=== PATIENT | female | born 1975 | race Caucasian/White ===

== ENCOUNTER 2018-02-28 14:47 | Emergency (ER) | payer MEDICAID, SELFPAY ==
[2018-02-28 14:52] VITALS: BP 150/115; PULSE 72; RESP 18; TEMP 37.4; O2SAT 100
--- NOTE | 2018-02-28 15:01 | DI.RAD_ITS ---
SYMPTOMS/DIAGNOSIS: PAIN AT DISTAL RADIUS AND SNUFFBOX (FALL ON OUTSTRETCHED HAND). LEFT WRIST WITH NAVICULAR VIEW: The navicular appears intact. The carpal alignment appears normal. There is a lucency in the distal radius at the articular surface suspicious for a nondisplaced fracture. IMPRESSION: Question of a nondisplaced fracture of the distal radius.
[2018-02-28] MEDS: Acetaminophen 500 MG TAB 1000 MG PO (15:05)
[2018-02-28] MEDS: Ibuprofen 800 MG TAB PO (15:05)
[2018-02-28 15:07] VITALS: BP 140/73
--- NOTE | 2018-02-28 15:07 | ED.GENADUL_ITS ---
Discharge Plan Disposition Patient Disposition: HOME Condition: Good Discharge Details Chief Complaint: Orthopedic Clinical Impression: Distal radius fracture, left Primary Care Provider: Erica Barajas ED Provider: Per Montoya Home Meds and New Rx's Prescriptions: No Action acetaminophen [Mapap Extra Strength] 500 MG tablet 500 mg PO PRN PRNRF: 0 ibuprofen 600 MG tablet 600 mg PO QID PRN (Reason: Pain) Qty: 15 RF: 0 Discharge Instructions Instructions: Wrist Fracture in Adults (ED) Additional Instructions: Please use the splint at all times. Please take Tylenol, and Motrin for control of pain. Please use ice as often as possible. If you notice any worsening of your symptoms, or any new symptoms such as vomiting, diarrhea, fever, chills, shortness of breath, chest pain, numbness, weakness, or fainting , please return immediately to the emergency department for reevaluation. Please follow up with your primary care provider as soon as possible for reassessment and reevaluation. As always, it was a pleasure participating in your medical care today. Referrals: Erica Barajas [Primary Care Provider] - Medical Decision Making This is a 42-year-old female who presents with left wrist pain after a FOOSH. It occurred at 8 AM today. She has taken no Tylenol or Motrin. Notable pain over the anatomical snuffbox,, worsened pain with flexion and extension of the wrist. I am concerned for a scaphoid injury, we will get an x-ray to evaluate for any acute fracture. Patient has seen Dr. Aguilar in the past for surgery on her left carpal tunnel. 3:50 PM X-ray results have returned, and there appears to be evidence of a distal radius fracture per Dr. Hillman and on my inspection of the x-ray. Because of the patient's snuffbox tenderness in spite of no evidence of scaphoid or lunate fracture we will still place the patient in a thumb spica wrist splint. Recommend Tylenol Motrin and ice for home use. We discussed the importance of close follow-up with orthopedics we will set up a referral for. I have extensively reviewed the treatment plan and discharge instructions with the patient. I have addressed all patient concerns at this time. The patient was made aware of what symptoms to monitor for that would warrant a return to the emergency department. Discussed the plan with the patient, they demonstrate verbal understanding and agreement with our assessment and plan at this time. HPI General Date/Time Provider Initiated Documentation: 02/28/18 15:01 . HPI Narrative: This is a 42-year-old female who is ambidextrous but normally vegec-hbre-ctmyangn who presents for left wrist pain. At 8 AM the patient fell on an outstretched hand with the majority of the pressure being caught by her left wrist. She immediately noticed pain over the distal radius, pain is worse with movement, improved by nothing. She has taken no Tylenol or Motrin. No radiation of the pain to the fingers or forearm. Patient denies any associated numbness tingling or weakness. She has no other complaints at this time. No recent surgeries, no pertinent family history, no IV or illicit drug use Related Data Home Medications Medication Instructions Recorded Confirmed acetaminophen [Mapap Extra 500 mg PO PRN PRN 08/31/16 02/28/18 Strength] ibuprofen 600 mg PO QID PRN #15 tablet 08/31/16 02/28/18 Previous Rx's Medication Instructions Recorded ibuprofen 600 mg PO QID PRN #15 tablet 08/31/16 Allergies Allergy/AdvReac Type Severity Reaction Status Date / Time latex Allergy Intermediate RED,BLISTERING Unverified 11/05/16 14:00 RASH General Stated Complaint: Orthopedic KALI: 4 Review of Systems Review of Systems All systems reviewed & are unremarkable except as noted in HPI and below PFSH Social History Smoking/Tobacco Use Status: Current every day Exam Narrative Exam Narrative: 1.Const: Well-nourished, Well-developed, appearing stated age 2.Eyes: PERRL, no conjunctival injection, and symmetrical lids. 3.ENT: Atraumatic external nose and ears. Moist MM. Neck: Symmetric, trachea midline, No thyromegaly. 4.CVS: +S1/S2, No murmurs or gallops. Peripheral pulses 2+ and equal in all extremities. Brisk capillary refill in all extremities. 5.RESP: Unlabored respiratory effort. Clear to auscultation bilaterally. No wheezes rales or rhonchi 6.GI: Soft, Nontender/Nondistended, No hepatosplenomegaly. No guarding or rebound. 7.MSK: Normocephalic. Symmetrically palpable radial and ulnar pulses. Capillary refill <2 seconds to all digits. LEFT HAND: Intact sensation to light touch of the radial, median and ulnar nerves demonstrated by testing in the dorsal web space of the thumb, the distal palmar aspect of the index finger, and the lateral surface of the fifth finger. 2 point discrimination intact to 5mm (up to 6mm can be normal in digits 3-5) of discrimination in the affected digit. Intact motor function of the radial, median and ulnar nerves demonstrated by strength of extension of the isolated distal joint of the index finger, hand electric serviceman, and spreading of the 2nd through 5th digits. Intact recurrent median nerve as demonstrated by ability to move thumb fully through opposition, abduction and flexion. Notable anatomical snuffbox tenderness on the left wrist, as well as tenderness over the distal radius. No tenderness over the distal ulna. No tenderness over the fingers. Mild radiating tenderness over the thenar eminence, and slightly more medial over the second metacarpal. Pain is notably worsened with flexion and extension of the fingers, the pain with this movement is located in the wrist. 8.Skin: Warm, Dry. No rashes or lesions. 9.Neuro: trench pipe layer II-XII grossly intact. Sensation grossly intact, no focal neurologic deficits. 10.Psych: (AAO) x3. Appropriate mood and affect Course Vital Signs Temperature 37.4 C 02/28/18 14:52 Pulse 72 02/28/18 14:52 Respiratory Rate 18 02/28/18 14:52 Blood Pressure 150/115 H 02/28/18 14:52 Pulse Oximetry 100 02/28/18 14:52 Temperature 37.4 C 02/28/18 14:52 Temperature Source Temporal Artery Scan 02/28/18 14:52 Pulse 72 02/28/18 14:52 Respiratory Rate 18 02/28/18 14:52 Blood Pressure 150/115 H 02/28/18 14:52 Blood Pressure Position Sitting 02/28/18 14:52 Pulse Oximetry 100 02/28/18 14:52 Oxygen Delivery Method Room Air 02/28/18 14:52 Oxygen Flow Rate 0 02/28/18 14:52 Pain Level 7 02/28/18 14:52
== END 2018-02-28 16:05 | disposition home or self-care (01) ==
LOC: ER 16:01
PROVIDERS: Emergency Provider Student in an Organized Health Care Education/Training Program; PCP Nurse Practitioner Family
DX: S52.592A Other fractures of lower end of left radius, initial encounter for closed fracture (principal); W01.0XXA Fall on same level from slipping, tripping and stumbling without subsequent striking against object, initial encounter
CPT/HCPCS: 25600; 73110; L3807

== ENCOUNTER 2018-03-08 11:14 | Outpatient (CLI) | payer MEDICAID, SELFPAY ==
--- NOTE | 2018-03-08 11:11 | DI.RAD_ITS ---
SYMPTOMS/DIAGNOSIS: PAIN LEFT WRIST: Four views. Comparison is 02/28/18. The longitudinal lucency at the articular surface of the left wrist is again visualized, but less prominent on the current examination. No findings to suggest a healing fracture or new fracture or dislocation is seen. The soft tissues are unremarkable.
== END 2018-03-08 11:34 ==
PROVIDERS: PCP Nurse Practitioner Family; Visit Provider Orthopaedic Surgery
DX: M25.532 Pain in left wrist (principal)
CPT/HCPCS: 73110

== ENCOUNTER 2018-03-24 12:20 | Outpatient (CLI) | payer MEDICAID, SELFPAY ==
--- NOTE | 2018-03-24 12:03 | DI.RAD_ITS ---
SYMPTOMS/DIAGNOSIS: PAIN LEFT WRIST: Four views were obtained. The previously noted questionable linear lucency of the distal radius is less prominent on the current examination. No evidence of a fracture or dislocation.
== END 2018-03-24 12:40 ==
PROVIDERS: PCP Nurse Practitioner Family; Visit Provider Orthopaedic Surgery
DX: M25.532 Pain in left wrist (principal)
CPT/HCPCS: 73110

== ENCOUNTER 2021-03-23 22:14 | Emergency (ER) | payer SELFPAY ==
[2021-03-23] VITALS (16 sets, daily range): BP systolic 91–125; BP diastolic 54–73; PULSE 56–83; RESP 14–28; TEMP 36.6; O2SAT 94–100
--- NOTE | 2021-03-23 22:15 | RT.EKG_ITS ---
APPROVED REPORT Exam: Resting ECG Reason for Exam: syncope Patient Location: E HR:60 bpm ECG Measurements Heart Rate 60 AXIS PA 189 P 53 QRSd 80 QRS 32 QT 430 T 20 QTc 428 Conclusion Sinus rhythm...normal P axis, V-rate 60- 99 Probable left atrial enlargement...P >50mS, <-0.10mV V1 Physician: no stemi, inverted t wave V1 and V2 and III I have reviewed and interpreted ECG and agree with software generated interpretation.
--- NOTE | 2021-03-23 22:30 | DI.CT_ITS ---
Exam(s) CT HEAD WO EXAM: CT HEAD WO CLINICAL HISTORY: recurrent syncope HI. TECHNIQUE: Imaging Protocol: Axial computed tomography images with coronal and sagittal reformatted images were created and reviewed COMPARISON: No exams were available for comparison FINDINGS: There is soft tissue laceration over the left malar eminence. No subjacent fracture evident. Howev er, there is a fracture of the left side of the nasal bone, age indeterminate. No evidence of orbita l blowout fracture. Mild mucosal thickening noted in the floor of the opposite-right maxillary sinus . Remainder of the sinuses are clear. There is no evidence of intracranial hemorrhage, mass effect, or shift of midline structures. There are no extra-axial fluid collections. The ventricles are not enlarged or shifted and there is no blo od within the ventricular system nor within the basal cisterns. IMPRESSION: No acute intracranial findings on this noninfused CT scan of the brain. Left facial findings as above RADIATION DOSE DELIVERED: 735.17mGy.cm Total DLP DATA REPOSITORY: All CT scans at this facility are submitted to the National Radiology Data Registry (NRDR) Dose Index Registry (DIR) with the [employer] (ACR). RADIATION OPTIMIZATION: All CT scans at this facility use at least one of these dose optimization te chniques: automated exposure control; mA and/or kV adjustment per patient size (includes targeted exa ms where dose is matched to clinical indication); or iterative reconstruction.
--- NOTE | 2021-03-23 22:43 | ED.GENADUL_ITS ---
Discharge Plan Disposition Patient Disposition: HOME Condition: Stable Discharge Details Clinical Impression: Syncope Primary Care Provider: Erica Barajas ED Provider: Nina Pal Home Meds and New Rx's Prescriptions: No Action acetaminophen 500 MG tablet 500 mg PO PRN PRNRF: 0 Discharge Instructions Instructions: Syncope (ED) Additional Instructions: Follow-up with PCP in 24 hours for reassessment Please return earlier should you have recurrent episode of syncope, chest pain, shortness of breath, dizziness, weakness You will need a Holter monitor, they will call you for placement of this Use caution when going from sitting to standing Do not engage in any exertional activities until you have your Holter monitor Suture removal in 5 days Referrals: Erica Barajas [Primary Care Provider] - 1 day Discharge Orders Other Ambulatory Orders: Holter Monitor (Routine) Timeframe: 1 Week Facility: [facility] - Location: Respiratory Therapy Ordered By: Nina Pal Discharge Data Discharge Date/Time-TO BE ENTERED AT DEPARTURE: 03/24/21 01:52 Medical Decision Making Patient story is consistent with micturition syncope, however she did have 2 episodes of syncope today She is a concern given the recurrent syncope I did recommend admission to the hospital for telemetry monitoring and observation, however patient declines admission at this time Time of reassessment she has not orthostatic she is ambulatory with steady gait, she reports marked symptomatic improvement She tolerated suture placement without incident Her CT head does not show abnormality and her diagnostic labs are reassuring including a negative D-dimer Holter monitor was ordered, unfortunately we are unable to place this until Wednesday She is discharged home in care of her partner at this time in stable condition She is given very low threshold to return should she have new or worsening complaints and repeat assessment with primary care physician recommended on Wednesday Mild leukocytosis, no obvious evidence of infectious process on her clinical exam diagnostic imaging Potassium was 3.3, this was supplemented and prescription for outpatient was ordered Urinalysis exhibits red blood cells, she will need this rechecked by her PCP Covid negative Please see my attendings interpretation of EKG findings, negative troponin, no chest pain or shortness of breath Medical Records Medical records reviewed: Yes I reviewed the patient's medical records. Lab Data Lab results reviewed: Yes I reviewed the patient's lab results. ECG Data Prior ECG tracings: available for review HPI General Mode of arrival: ambulatory . Date/Time Provider Initiated Documentation: 03/23/21 22:25 . Limitations to Documentation: no limitations . Information obtained by: patient . HPI Narrative: This 45-year-old female presents with recurrent syncope. She states that she had a similar episode last week. She states this evening when she went to the bathroom she was walking back to her bed and she felt weakness. She experienced tunnel vision and does not remember anything additionally. She reportedly hit her left cheek when she fell. She states that this occurred when she was using the restroom last week. She currently feels weak like she may pass out again. She denies history of any illicit drug use. She denies any medications. She denies any chance . She denies any nausea or vomiting. Related Data Home Medications Medication Instructions Recorded Confirmed acetaminophen 500 mg PO PRN PRN 08/31/16 03/23/21 Allergies Allergy/AdvReac Type Severity Reaction Status Date / Time latex Allergy Intermediate RED,BLISTERING Unverified 03/23/21 22:25 RASH General Stated Complaint: Dizzy/Sync KALI: 3 Review of Systems All systems reviewed & are unremarkable except as noted in HPI and below PFSH All Active Problems (Updated 03/24/21 @ 01:16 by BRUNILDA Fajardo) Syncope (Chronic) Syncope and collapse (Acute) Left wrist pain (Acute) Deviated nasal septum (Acute 09/20/14) Social History Smoking/Tobacco Use Status: Current every day Tobacco Type: cigarettes Smoking risk assessment performed?: Yes Alcohol Intake: current Alcohol Intake frequency: holidays/special occasions only Alcohol type: beer and other Drug use: Daily Substance use type: marijuana Details: Twisted teas, hard seltzers on special occassions. Smokes marijuana daily; about two hits after work. Do you feel safe at home: Yes Do you feel safe in your relationship?: Yes Exam Const General: cooperative and no acute distress HENMT Other: Uvula midline, 1 inch laceration noted to left maxillary region, strength and sensation intact distally, no hemotympanum Eyes Pupils: PERRL EOM: EOM intact bilaterally Neck Other: No midline tenderness Resp Effort & Inspection: normal respiratory effort Auscultation: clear to auscultation bilaterally Other: No visible sign of trauma Cardio Rate: regular rate Rhythm: regular rhythm Heart Sounds: no murmurs GI Other: Nontender abdominal exam Skin Other: Laceration left maxillary region Neuro General: patient alert and patient oriented x3 Cranial Nerves: CN's II-XI intact bilaterally Cognition: normal cognition Speech: speech normal Gait: normal gait Motor: strength 5/5 throughout Sensory Exam: no sensory deficits noted Other: Negative wsbvqi-afev-opwprm, negative heel gutierrez, negative pronator drift, ambulatory with steady gait Course Vital Signs Vital signs: Vital Signs Temperature 36.6 C 03/23/21 22:20 Pulse 68 03/23/21 22:20 Respiratory Rate 14 03/23/21 22:20 Blood Pressure 91/54 L 03/23/21 22:20 Pulse Oximetry 98 03/23/21 22:20 Temperature 36.6 C 03/23/21 22:20 Temperature Source Temporal Artery Scan 03/23/21 22:20 Pulse 68 03/23/21 22:20 Respiratory Rate 14 03/23/21 22:25 Respiratory Effort Non-Labored 03/23/21 22:25 Respiratory Depth Normal 03/23/21 22:25 Respiratory Pattern Normal 03/23/21 22:25 Blood Pressure 91/54 L 03/23/21 22:20 Blood Pressure Position Sitting 03/23/21 22:20 Pulse Oximetry 98 03/23/21 22:20 Oxygen Delivery Method Room Air 03/23/21 22:20 Oxygen Flow Rate 0 03/23/21 22:20 Pain Level 5 03/23/21 22:20 Lab/Test Results Lab/Test Results: Laboratory Tests Range/Units 03/23/21 03/23/21 22:25 22:25 WBC Cancelled RBC Cancelled Hgb Cancelled Hct Cancelled MCV Cancelled MCH Cancelled MCHC Cancelled RDW Cancelled Plt Count Cancelled MPV Cancelled Immature Gran % Cancelled Neutrophils % Cancelled Band Neutrophils % Cancelled Lymphocytes % Cancelled Atypical Lymphs % Cancelled Monocytes % Cancelled Eosinophils % Cancelled Basophils % Cancelled Metamyelocytes % Cancelled Myelocytes % Cancelled Promyelocytes % Cancelled Other Cells % Cancelled Nucleated RBC % Cancelled Absolute Neutrophils Cancelled Absolute Lymphocytes Cancelled Absolute Monocytes Cancelled Absolute Eosinophils Cancelled Absolute Basophils Cancelled RBC Morphology Cancelled Polychromasia Cancelled Hypochromasia Cancelled Poikilocytosis Cancelled Basophilic Stippling Cancelled Anisocytosis Cancelled Microcytosis Cancelled Macrocytosis Cancelled Spherocytes Cancelled Tear Drop Cells Cancelled Ovalocytes Cancelled Stomatocytes Cancelled [place] Bodies Cancelled [place] Cells/Echinocytes Cancelled Acanthocytes (Spur) Cancelled Schistocytes Cancelled Sodium Cancelled Potassium Cancelled Chloride Cancelled Carbon Dioxide Cancelled Anion Gap Cancelled BUN Cancelled Creatinine Cancelled Estimated GFR/1.73 m2 Cancelled Glucose Cancelled Calcium Cancelled Total Bilirubin Cancelled AST Cancelled ALT Cancelled Alkaline Phosphatase Cancelled Total Protein Cancelled Albumin Cancelled Procedures Laceration Laceration 1: Number of sutures: 6
[2021-03-23] MEDS: Normal Saline 1,000 ML 1000 ML IV ×2 (22:44→22:54)
[2021-03-23 22:50] LABS: Abs Immature Grans 0.05 10^3/uL (0.0-0.06); Absolute Eosinophil Count 0.27 10^3/uL (0.0-0.7); Absolute Monocyte Count 1.09 10^3/uL (0.1-0.8); Basophils % 0.5; Eosinophils % 2.1; HCT 37.4 % (36.0-46.0); HGB 11.8 g/dL (11.2-15.7); Immature Grans % 0.4; Lymphocytes % 28.2; MCHC 31.6 % (32.0-36.0); MCV 85.6 fL (80-95); MPV 9.4 fL (8.0-11.0); Monocytes % 8.4; Neutrophils % 60.4; Nucleated RBC 0 %; Platelet Count 364 10^3/uL (130-400); RBC 4.37 10^6/uL (3.93-5.22); RDW 15.4 % (11.7-14.6); WBC 13.03 10^3/uL (4.4-10.8)
[2021-03-23 22:53] LABS: Absolute Basophil Count 0.07 10^3/uL (0.0-0.2); Absolute Lymphocyte Count 3.67 10^3/uL (1.2-3.4); Absolute Neutrophil Count 7.87 10^3/uL (1.2-6.7)
[2021-03-23 23:03] LABS: Magnesium 1.9 mg/dL (1.8-2.4)
[2021-03-23 23:05] LABS: Source Nasal/Nares
[2021-03-23 23:07] LABS: HCG Qual (Serum) Negative
[2021-03-23 23:14] LABS: ALT 15 U/L (14-59); AST 14 U/L (15-37); Albumin 3.4 g/dL (3.4-5.0); Alkaline Phosphatase 59 U/L (46-116); Anion Gap 10.3 mmol/L (3-11); BUN 13 mg/dL (7-18); Bilirubin, Total 0.3 mg/dL (0.2-1.0); CO2 25.7 mmol/L (21.0-32.0); Calcium 8.4 mg/dL (8.5-10.1); Chloride 106 mmol/L (98-107); Glucose 146 mg/dL (74-106); Potassium 3.3 mmol/L (3.5-5.1); Sodium 142 mmol/L (136-145); Total Protein 6.8 g/dL (6.4-8.2); Troponin I < 50 ng/L (<or=60)
--- NOTE | 2021-03-23 23:34 | DI.VRAD_ITS ---
PROCEDURE INFORMATION: Exam: CT Head Without Contrast Exam date and time: 03/23/2021 10:43 PM Age: 45 years old Clinical indication: Injury or trauma; Fall; Blunt trauma (contusions or hematomas) and laceration; With loss of consciousness; Not specified; Without residual foreign body; Face; Injury date: 03/23/21; Injury details: Recurrent syncope hi, loc, lacerartion lateral to left eye TECHNIQUE: Imaging protocol: Computed tomography of the head without contrast. Radiation optimization: All CT scans at this facility use at least one of these dose optimization techniques: automated exposure control; mA and/or kV adjustment per patient size (includes targeted exams where dose is matched to clinical indication); or iterative reconstruction. COMPARISON: No relevant prior studies available. FINDINGS: Brain: Mild volume loss. No hemorrhage. Unremarkable white matter. No mass effect. Cerebral ventricles: No ventriculomegaly. Paranasal sinuses: Visualized sinuses are unremarkable. No fluid levels. Mastoid air cells: Visualized mastoid air cells are well aerated. Bones/joints: Chronic nasal bone fractures. No acute fracture. Soft tissues: Laceration over the left malar eminence/left cheek IMPRESSION: No acute intracranial hemorrhage Dictated and Authenticated by: Elton Ahuamda MD. Ordering:JAMES Wood MD
[2021-03-23 23:42] LABS: COVID-19 PCR Negative (Negative)
[2021-03-24] VITALS (24 sets, daily range): BP systolic 100–123; BP diastolic 55–75; PULSE 62–91; RESP 13–32; TEMP 36.5; O2SAT 97–100
[2021-03-24 00:07] LABS: D-Dimer 230 ng/mlFEU (<500)
[2021-03-24 01:41] LABS: Bilirubin Negative (Negative); Blood Large (Negative); Clarity Sl Cloudy (Clear); Glucose Negative (Negative); Ketones Negative (Negative); Leukocyte Esterase Negative (Negative); Nitrite Negative (Negative); Urobilinogen 0.2 EU/dL (Up TO 0.2)
[2021-03-24] MEDS: POTASSIUM CHLORIDE 20 MEQ, POTASSIUM CHLORIDE 10 MEQ 30 MEQ PO (01:41)
[2021-03-24 01:47] LABS: Bacteria Few HPF (Negative); C & S Indicated? No/Sq. Contamination; Casts Negative LPF (Negative); Crystals Negative HPF (Negative); Epithelial Cells Many HPF (Negative); Mucus Trace (Negative)
== END 2021-03-24 01:52 | disposition home or self-care (01) ==
PROVIDERS: Emergency Provider Physician Assistant; PCP Nurse Practitioner Family
DX: S01.412A Laceration without foreign body of left cheek and temporomandibular area, initial encounter; R55 Syncope and collapse; W18.39XA Other fall on same level, initial encounter; R31.9 Hematuria, unspecified; E87.6 Hypokalemia
CPT/HCPCS: 12011; 36416; 80053; 82962; 87635; 93005; 96360; 99284; 70450; 81003; 81015; 83735; 84484; 84703; 85025; 85379; 93010

== ENCOUNTER 2021-05-02 16:43 | Outpatient (REF) | payer SELFPAY ==
[2021-05-02 20:10] LABS: HCT 42.5 % (36.0-46.0); MCH 26.4 pg (27.0-33.0); MCHC 30.6 % (32.0-36.0); MCV 86.2 fL (80-95); MPV 9.9 fL (8.0-11.0); Platelet Count 369 10^3/uL (130-400); RBC 4.93 10^6/uL (3.93-5.22); RDW 15.2 % (11.7-14.6); RDW-SD 47.8 fL; WBC 7.62 10^3/uL (4.4-10.8)
[2021-05-02 20:29] LABS: Anion Gap 12.2 mmol/L (3-11); BUN 10 mg/dL (7-18); CO2 23.8 mmol/L (21.0-32.0); CREATININE 0.8 mg/dL (0.55-1.02); Calcium 8.8 mg/dL (8.5-10.1); Calculated LDL 161 mg/dL (<100); Chloride 104 mmol/L (98-107); Cholesterol 235 mg/dL (<200); Glucose 82 mg/dL (74-106); HDL Cholesterol 49 mg/dL (40-60); Potassium 3.9 mmol/L (3.5-5.1); Sodium 140 mmol/L (136-145); Triglyceride 129 mg/dL (<150)
== END 2021-05-02 16:44 | disposition home or self-care (01) ==
LOC: NCHCN 16:43
PROVIDERS: PCP Nurse Practitioner Family; Visit Provider Physician Assistant
DX: R55 Syncope and collapse (principal); Z13.220 Encounter for screening for lipoid disorders
CPT/HCPCS: 80048; 80061; 85027; 84439; 84443

== ENCOUNTER 2021-06-05 14:10 | Outpatient (CLI) | payer SELFPAY ==
--- NOTE | 2021-06-05 14:00 | RT.EKG_ITS ---
APPROVED REPORT Exam: Resting ECG Reason for Exam: NPW Baseline needed Patient Location: O HR:87 bpm ECG Measurements Heart Rate 87 AXIS HI 168 P 39 QRSd 83 QRS 17 QT 358 T 5 QTc 431 Conclusion Sinus rhythm...normal P axis, V-rate 50- 99 Probable left atrial enlargement...P >50mS, <-0.10mV V1 Minor diffuse nondiagnostic ST-T abnormalities
== END 2021-06-05 14:11 | disposition home or self-care (01) ==
LOC: DI.CARD 14:11
PROVIDERS: PCP Physician Assistant; Visit Provider Internal Medicine Cardiovascular Disease
DX: R55 Syncope and collapse (principal)
CPT/HCPCS: 93010

== ENCOUNTER 2021-06-23 15:42 | Outpatient (REF) | payer SELFPAY ==
--- NOTE | 2021-06-23 13:30 | PAPFT_PTH ---
PATIENT: Roxi Escoto LOC: [facility] U#:[id number] AGE/SX: 45/F ROOM: RE06/23/[address]: Barbie Hogue MD : 1975 BED: DIS: 06/23/2021 SPEC #: [id number] RECD: 06/23/21 18:12 STATUS: JEWEL REQ #: [id number] ADRI: 06/23/21 13:[address]: Barbie Hogue DEPT: [facility] Cytology RECD BY: Nina Castellanos ENTERED: 06/23/21 18:12 SP TYPE: PAPFT OTHR DR: Kennedy Avalos Tissues: 1 - CX/ENDOCX FOR PAP SMEARS Procedures: PAP THIN PREP/[facility] Screening HPV DNA PROBE Comments: [id number] (CHLAMYDIA/GC)
== END 2021-06-23 15:43 | disposition home or self-care (01) ==
LOC: LBN 15:42
PROVIDERS: PCP Physician Assistant; Visit Provider Obstetrics & Gynecology
DX: Z11.3 Encounter for screening for infections with a predominantly sexual mode of transmission (principal); Z12.4 Encounter for screening for malignant neoplasm of cervix; Z11.51 Encounter for screening for human papillomavirus (HPV)
CPT/HCPCS: 87491; 87591; 88142; 87624

== ENCOUNTER 2021-07-28 02:02 | Outpatient (CLI) | payer SELFPAY ==
--- NOTE | 2021-07-28 06:30 | DI.MRI_ITS ---
Exam(s) MR BRAIN WO EXAM: MR BRAIN WO CLINICAL HISTORY: ?seizure,syncope,collapse,r55 TECHNIQUE: Multiplanar multisequence MRI of the brain was performed. COMPARISON: No exams were available for comparison FINDINGS: VENTRICLES AND EXTRA AXIAL SPACES: Normal in size and morphology for the patient's age. MIDLINE SHIFT: None. CEREBRAL PARENCHYMA: No focus of restricted diffusion to suggest acute infarct. No space-occupying le karely identified. HEMORRHAGE: None. BRAINSTEM/CEREBELLUM: Normal. CALVARIUM: Normal. VISUALIZED PARANASAL SINUSES/MASTOIDS:Clear. [place]: Normal flow void. PITUITARY GLAND: Unremarkable. OTHER FINDINGS: None. IMPRESSION: Unremarkable MRI of the brain. DATA REPOSITORY:
== END 2021-07-28 02:22 ==
LOC: DI 02:04
PROVIDERS: PCP Physician Assistant; Visit Provider Psychiatry & Neurology Neurology
DX: R55 Syncope and collapse (principal)
CPT/HCPCS: 70551

== ENCOUNTER 2021-08-07 02:42 | Outpatient (CLI) | payer SELFPAY ==
--- NOTE | 2021-08-07 11:38 | DI.MAMMO_ITS ---
Exam(s) MAMMO SCREENING EXAM: MAMMO SCREENING CLINICAL HISTORY: screening, Z12.39 TECHNIQUE: Mammograms were interpreted according to the usual protocol including computer analysis w [employer] CAD system, tomosynthesis and C-view imaging. COMPARISON: No exams were available for comparison. Baseline examination. FINDINGS: The breasts are composed of scattered fibroglandular densities, Breast Density category B. No suspicious masses or suspicious microcalcifications are seen. No skin thickening or abnormal axillary lymph nodes are seen. . IMPRESSION: BI-RADS Category 1, Negative mammogram Yearly screening mammography is recommended. Breast Density - Category B, scattered fibroglandular densities. A negative radiographic report should not delay biopsy if a dominant or clinically suspicious mass is present. Up to ten percent of cancers are not identified on mammography. A negative report may reinforce clinical impression. Adenosis and dense breasts may obscure an underlying neoplasm. False positive reports average 6 to 10%. Patient will receive a letter notifying them of these results.
== END 2021-08-07 03:02 ==
LOC: DI 02:43
PROVIDERS: PCP Physician Assistant; Visit Provider Obstetrics & Gynecology
DX: Z12.31 Encounter for screening mammogram for malignant neoplasm of breast (principal)
CPT/HCPCS: 77063; 77067